=== PATIENT | female | born 1990 | race Caucasian/White ===

== ENCOUNTER 2022-01-12 08:57 | Emergency (ER) | payer OTHER, BC ==
[2022-01-12] MEDS ORDERED: Boostrix 0.5 ML (Tdap) VIAL ONE (10:35)
[2022-01-12] MEDS ORDERED: Ketorolac Tromethamine 30 MG/ML VIAL ONE (10:35)
== END 2022-01-12 11:07 | disposition home or self-care (01) ==
LOC: ERS 08:57
DX: S80.811A Abrasion, right lower leg, initial encounter (principal); W01.198A Fall on same level from slipping, tripping and stumbling with subsequent striking against other object, initial encounter; Y93.39 Activity, other involving climbing, rappelling and jumping off; Y92.69 Other specified industrial and construction area as the place of occurrence of the external cause; Z23 Encounter for immunization
CPT/HCPCS: 90471; 90715; 96372; J1885